=== PATIENT | female | born 1945 | race Hispanic/Latino ===

== ENCOUNTER → 2021-04-11 | Day surgery (SDC) | payer OTHER ==
[2021-04-08 10:48] LABS: BASOPHILS % 0.5 % (0.0-1.0); EOSINOPHILS # (AUTO) 0.1 (0.0-0.4); EOSINOPHILS % 2.2 % (0.0-6.0); HEMATOCRIT 41.9 % (34.2-44.1); LYMPHOCYTES # (AUTO) 2.3 (1.0-3.2); LYMPHOCYTES % 35.1 % (18.0-39.1); MEAN CORPUSCULAR HEMOGLOBIN 28.3 pg (28-32); MEAN CORPUSCULAR VOLUME 91.1 fL (81-99); MONOCYTES # (AUTO) 0.3 (0.2-0.8); MONOCYTES % 5.1 % (4.4-11.3); NEUTROPHILS # (AUTO) 3.7 (2.1-6.9); NEUTROPHILS % 56.9 % (38.7-80.0); PLATELET COUNT 202 x10e3/uL (140-360); RED CELL DISTRIBUTION WIDTH 12.6 % (11.7-14.4)
[2021-04-08 11:31] LABS: ANION GAP 16.4 mmol/L (8-16); CALCIUM 9.4 mg/dL (8.4-10.2); CREATININE, SERUM 0.97 mg/dL (0.57-1.11); POTASSIUM 4.4 mmol/L (3.5-5.1)
[~2021-04-11] MED LIST: ACETAMINOPHEN-1 EAC3 PO; ASPIRIN81 M1; BUPIVACAINE HCL 0.5% INJ 30 ML VIAL INJ ONE; CITRACAL + BON1 EACH; GLIPIZIDE ER5 MG PO; JANUVIA100 MG; LOSARTAN POTASS25 MG PO; LOVAZA1 GM; METFORMIN HCL1000 MG PO; MUPIROCIN 2% OINT 22 GM TUBE ONE; SIMVASTATIN20 MG; SODIUM CHLORIDE 0.9% 50ML 50 ML ONE; ZETIA10 MG PO
[2021-04-11 09:40] VITALS: BP 134/60
== END | disposition home or self-care (01) ==
LOC: OR 05:44
PROVIDERS: ATTEND Plastic Surgery
DX: G56.01 Carpal tunnel syndrome, right upper limb (principal); M65.831 Other synovitis and tenosynovitis, right forearm; G47.33 Obstructive sleep apnea (adult) (pediatric); I10 Essential (primary) hypertension; E11.9 Type 2 diabetes mellitus without complications; Z01.812 Encounter for preprocedural laboratory examination; Z01.818 Encounter for other preprocedural examination; Z20.822 Contact with and (suspected) exposure to COVID-19; Z79.84 Long term (current) use of oral hypoglycemic drugs; Z79.82 Long term (current) use of aspirin
CPT/HCPCS: 25115; 36415 ×2; 71046; 80048; 82948; 85025; J0690; U0002

== ENCOUNTER → 2021-05-02 | Day surgery (SDC) | payer OTHER ==
[~2021-05-02] MED LIST changes: -SODIUM CHLORIDE 0.9% 50ML 50 ML ONE
[2021-05-02 10:15] VITALS: BP 134/57
== END | disposition home or self-care (01) ==
LOC: OR 05:44
PROVIDERS: ATTEND Plastic Surgery
DX: G56.02 Carpal tunnel syndrome, left upper limb (principal); M65.832 Other synovitis and tenosynovitis, left forearm; G47.33 Obstructive sleep apnea (adult) (pediatric); R00.1 Bradycardia, unspecified; I10 Essential (primary) hypertension; E78.5 Hyperlipidemia, unspecified; E11.9 Type 2 diabetes mellitus without complications; Z01.812 Encounter for preprocedural laboratory examination; Z20.822 Contact with and (suspected) exposure to COVID-19; Z79.82 Long term (current) use of aspirin; Z79.84 Long term (current) use of oral hypoglycemic drugs
CPT/HCPCS: 25115; 36415; 82948; J0690; U0002

== ENCOUNTER 2025-02-27 01:06 | Inpatient (IN) | payer MEDICARE, OTHER ==
[2025-02-27] VITALS (37 sets, daily range): BP systolic 90–132; BP diastolic 46–89; PULSE 46–66; RESP 11–23; TEMP 97.7–98.6; O2SAT 96–100
[~2025-02-27] VITALS: Ht 157.5 cm; Wt 61.9 kg
[~2025-02-27 01:06] MED LIST changes: -BUPIVACAINE HCL 0.5% INJ 30 ML VIAL INJ ONE; -MUPIROCIN 2% OINT 22 GM TUBE ONE
[2025-02-27 01:42] LABS: BASOPHILS % 0.3 % (0.0-1.0); EOSINOPHILS % 0.8 % (0.0-6.0); LYMPHOCYTES % 24.0 % (18.0-39.1); MONOCYTES % 4.3 % (4.4-11.3); NEUTROPHILS % 69.7 % (38.7-80.0); RED CELL DISTRIBUTION WIDTH 12.4 % (11.7-14.4)
[2025-02-27] MEDS: ONDANSETRON HCL INJ 2MG/ML 2ML 2 MG/ML VIAL IV STA (01:44)
[2025-02-27] MEDS: SODIUM CHLORIDE 0.9% 1000ML 1,000 ML IV STA (01:44)
[2025-02-27 02:05] LABS: EST GLOMERULAR FILTRATION RATE 54.0 ML/MIN (>=60)
[2025-02-27] MEDS ORDERED: DEXTROSE 50% SYRINGE 50 ML IV ONE (02:06)
[2025-02-27] MEDS ORDERED: IOPAMIDOL 370 MG/ML 100 ML INFUS..BTL INJ ONE (02:10)
[2025-02-27] MEDS: DEXTROSE 50% SYRINGE 50 ML IV STA (02:12)
[2025-02-27] MEDS: CALCIUM GLUC 1 G/50 ML NACL 50 ML IV ONE (02:41)
[2025-02-27] MEDS: GLUCAGON FOR INJ 1 MG VIAL IV ONE (02:41)
[2025-02-27 03:15] LABS: LEUKOCYTE ESTERASE ,URINE 1+ (NEGATIVE); PROTEIN,URINE DIPSTICK NEGATIVE (NEGATIVE); URINE UROBILINOGEN 0.2 mg/dL (0.2 - 1)
[2025-02-27] MEDS ORDERED: ONDANSETRON HCL INJ 2MG/ML 2ML 2 MG/ML VIAL IV PRN (03:15)
[2025-02-27] MEDS ORDERED: Morphine 2mg Syringe 2 MG/ML SYR IV PRN (03:15)
[2025-02-27 03:25] LABS: EPITHELIAL CELLS,URINE FEW /LPF; WBC,URINE (MAN) 21-50 /HPF (0-5)
[2025-02-27 03:26] LABS: CALCIUM OXALATE CRYSTALS,UR MODERATE (FEW)
[2025-02-27] MEDS: SODIUM CHLORIDE 0.9% 1000ML 1,000 ML IV ONE (05:16)
[2025-02-27] MEDS: SODIUM CHLORIDE 0.9% 1000ML 1,000 ML IV SCH (06:09)
[2025-02-27] MEDS ORDERED: DEXTROSE 50% SYRINGE 50 ML IV PRN (06:15)
[2025-02-27] MEDS: INSULIN REGULAR, HUMAN 100 UNIT/1 ML SQ SCH (07:25)
[2025-02-27] MEDS ORDERED: ALBUTEROL/IPRATROPIUM 3 ML NEB NEB PRN (07:30)
[2025-02-27] MEDS ORDERED: MELATONIN 3 MG TAB PO PRN (07:30)
[2025-02-27] MEDS ORDERED: ACETAMINOPHEN 325 MG TAB PO PRN (07:30)
[2025-02-27] MEDS ORDERED: HYDRALAZINE HCL 20 MG/ML VIAL IV PRN (07:30)
[2025-02-27] MEDS ORDERED: DOCUSATE SODIUM 100 MG CAP PO PRN (07:30)
[2025-02-27 09:18] LABS: T3 UPTAKE 28.95 % (22.5-37.0)
[2025-02-27] MEDS: MUPIROCIN 2% OINT 22 GM TUBE TOP SCH (09:55)
[2025-02-27] MEDS: FAMOTIDINE 20 MG/2 ML VIAL IV SCH (09:55)
[2025-02-27] MEDS: LACTATED RINGER'S 1,000 ML INJ SCH (10:52)
[2025-02-27] MEDS ORDERED: MUPIROCIN 2% OINT 22 GM TUBE TOP SCH (21:00)
[2025-02-28] VITALS (20 sets, daily range): BP systolic 92–145; BP diastolic 47–70; PULSE 46–95; RESP 11–18; TEMP 98.1–98.5; O2SAT 96–100
[2025-02-28 06:35] LABS: BASOPHILS % 0.4 % (0.0-1.0); EOSINOPHILS % 1.7 % (0.0-6.0); LYMPHOCYTES % 33.9 % (18.0-39.1); MONOCYTES % 6.8 % (4.4-11.3); NEUTROPHILS % 57.0 % (38.7-80.0); RED CELL DISTRIBUTION WIDTH 12.9 % (11.7-14.4)
[2025-02-28 07:11] LABS: EST GLOMERULAR FILTRATION RATE 69.0 ML/MIN (>=60)
[2025-03-01 03:07] VITALS: BP 136/55; PULSE 77; RESP 18; TEMP 97.8; O2SAT 98
[2025-03-01] MEDS ORDERED: CEPHALEXIN500 MG PO (06:53)
[2025-03-01] MEDS ORDERED: HYDRALAZINE HCL25 MG PO (06:55)
[2025-03-01 07:37] VITALS: PULSE 46; RESP 14; O2SAT 95
[2025-03-01] MEDS: SODIUM CHLORIDE 0.9% 100 ML ONE (07:46)
[2025-03-01 08:00] VITALS: BP 136/55; PULSE 46; RESP 14; TEMP 97.8; O2SAT 95
[2025-03-01 08:07] VITALS: BP 137/60; PULSE 46; RESP 18; TEMP 97.2; O2SAT 98
[2025-03-01 12:49] VITALS: BP 123/71; PULSE 51; RESP 18; TEMP 98; O2SAT 99
== END 2025-03-01 13:46 | disposition home or self-care (01) | DRG 871 ==
LOC: ER 01:12 → ERHOLD 04:33 → ICU 07:57 → MED/SURG2 02-28 12:29
PROVIDERS: ADMIT Internal Medicine; ATTEND Internal Medicine
PROC: 06HY33Z Insertion of Infusion Device into Lower Vein, Percutaneous Approach (ICD-10-PCS; principal; 2025-02-27)
PROC: 3E03329 Introduction of Other Anti-infective into Peripheral Vein, Percutaneous Approach (ICD-10-PCS; 2025-02-27)
PROC: 3E043XZ Introduction of Vasopressor into Central Vein, Percutaneous Approach (ICD-10-PCS; 2025-02-27)
DX: A41.9 Sepsis, unspecified organism (principal); G93.41 Metabolic encephalopathy; R65.21 Severe sepsis with septic shock; N39.0 Urinary tract infection, site not specified; I45.2 Bifascicular block; N17.9 Acute kidney failure, unspecified; F03.911 Unspecified dementia, unspecified severity, with agitation; F05 Delirium due to known physiological condition; L76.32 Postprocedural hematoma of skin and subcutaneous tissue following other procedure; T38.3X5A Adverse effect of insulin and oral hypoglycemic [antidiabetic] drugs, initial encounter; E11.649 Type 2 diabetes mellitus with hypoglycemia without coma; Z79.84 Long term (current) use of oral hypoglycemic drugs; Y92.009 Unspecified place in unspecified non-institutional (private) residence as the place of occurrence of the external cause; E86.0 Dehydration; I95.9 Hypotension, unspecified; K52.9 Noninfective gastroenteritis and colitis, unspecified; K80.20 Calculus of gallbladder without cholecystitis without obstruction; R00.1 Bradycardia, unspecified; I10 Essential (primary) hypertension; E78.5 Hyperlipidemia, unspecified; I45.10 Unspecified right bundle-branch block; Z79.899 Other long term (current) drug therapy; Z79.82 Long term (current) use of aspirin; Y84.8 Other medical procedures as the cause of abnormal reaction of the patient, or of later complication, without mention of misadventure at the time of the procedure; Y92.230 Patient room in hospital as the place of occurrence of the external cause
CPT/HCPCS: 36415; 71045; 74177; 76705; 80053; 81001; 82550; 82948; 83690; 83880; 84436; 84443; 84479; 84484; 85014; 85018; 85025; 86140; 86850; 86900; 93005; 93306; 94799; 99284; J1308; J1610; J2405; J2543; J7030; J7050; J7799; Q9967

== ENCOUNTER 2025-03-06 06:56 | Inpatient (IN) | payer MEDICARE ==
[2025-03-06] VITALS (8 sets, daily range): BP systolic 121–129; BP diastolic 45–59; PULSE 51–84; RESP 17–26; TEMP 97.7–98.9; O2SAT 95–100
[~2025-03-06] VITALS: Ht 160 cm; Wt 68.0 kg
[~2025-03-06 06:56] MED LIST changes: +CEPHALEXIN500 MG PO; +HYDRALAZINE HCL25 MG PO
[2025-03-06] MEDS ORDERED: DEXTROSE 50% SYRINGE 50 ML IV ONE (07:04)
[2025-03-06] MEDS: DEXTROSE 5%/0.45% SOD CHL 1,000 ML IV ONE (07:24)
[2025-03-06 07:35] LABS: BASOPHILS % 0.1 % (0.0-1.0); EOSINOPHILS % 0.4 % (0.0-6.0); LYMPHOCYTES % 10.4 % (18.0-39.1); MONOCYTES % 2.4 % (4.4-11.3); NEUTROPHILS % 86.4 % (38.7-80.0); RED CELL DISTRIBUTION WIDTH 12.8 % (11.7-14.4)
[2025-03-06 07:51] LABS: INR 0.98
[2025-03-06 07:58] LABS: LEUKOCYTE ESTERASE ,URINE NEGATIVE (NEGATIVE); PROTEIN,URINE DIPSTICK NEGATIVE (NEGATIVE); URINE UROBILINOGEN 0.2 mg/dL (0.2 - 1)
[2025-03-06 07:59] LABS: EST GLOMERULAR FILTRATION RATE 69.0 ML/MIN (>=60)
[2025-03-06 08:01] LABS: EPITHELIAL CELLS,URINE RARE /LPF; WBC,URINE (MAN) 0-5 /HPF (0-5)
[2025-03-06] MEDS ORDERED: ONDANSETRON HCL INJ 2MG/ML 2ML 2 MG/ML VIAL IV PRN ×2 (08:45→14:15)
[2025-03-06] MEDS ORDERED: SIMETHICONE 80 MG CHEW PO PRN (14:15)
[2025-03-06] MEDS ORDERED: DIPHENHYDRAMINE HCL 25 MG CAP PO PRN (14:15)
[2025-03-06] MEDS ORDERED: DOCUSATE SODIUM 100 MG CAP PO PRN (14:15)
[2025-03-06] MEDS ORDERED: BENZONATATE 100 MG CAP PO PRN (14:15)
[2025-03-06] MEDS ORDERED: ALBUTEROL/IPRATROPIUM 3 ML NEB NEB PRN (14:15)
[2025-03-06] MEDS ORDERED: HYDRALAZINE HCL 20 MG/ML VIAL IV PRN (14:15)
[2025-03-06] MEDS ORDERED: POTASSIUM CHLORIDE 20 MEQ TAB CR PO PRN (14:15)
[2025-03-06] MEDS ORDERED: ACETAMINOPHEN 325 MG TAB PO PRN (14:15)
[2025-03-06] MEDS ORDERED: DEXTROSE 50% SYRINGE 50 ML IV PRN (14:15)
[2025-03-06] MEDS ORDERED: LIDOCAINE 4% PATCH TP PRN (14:15)
[2025-03-06] MEDS: ENOXAPARIN SOD INJ 40 MG/0.4 ML SYR SC SCH (17:07)
[2025-03-06] MEDS ORDERED: MELATONIN 5 MG TABLET PO PRN (21:00)
[2025-03-07] VITALS (8 sets, daily range): BP systolic 107–138; BP diastolic 53–67; PULSE 51–59; RESP 17–19; TEMP 97.8–98.7; O2SAT 63–100
[2025-03-07 05:59] LABS: BASOPHILS % 0.3 % (0.0-1.0); EOSINOPHILS % 2.6 % (0.0-6.0); LYMPHOCYTES % 38.3 % (18.0-39.1); MONOCYTES % 6.7 % (4.4-11.3); NEUTROPHILS % 51.9 % (38.7-80.0); RED CELL DISTRIBUTION WIDTH 13.1 % (11.7-14.4)
[2025-03-07 06:27] LABS: CHOL/HDL RATIO 2.6 (3.0-3.6); EST GLOMERULAR FILTRATION RATE 68.0 ML/MIN (>=60); LDL CHOLESTEROL 38.0 MG/DL (60-130)
[2025-03-07] MEDS: PANTOPRAZOLE SOD 40 MG TABEC PO SCH (08:33)
== END 2025-03-07 17:35 | disposition home or self-care (01) | DRG 637 ==
LOC: ER 07:02 → ERHOLD 08:35 → MED/SURG3 09:20
PROVIDERS: ADMIT Internal Medicine; ATTEND Internal Medicine
DX: E11.649 Type 2 diabetes mellitus with hypoglycemia without coma (principal); G93.41 Metabolic encephalopathy; T38.3X5A Adverse effect of insulin and oral hypoglycemic [antidiabetic] drugs, initial encounter; F03.90 Unspecified dementia, unspecified severity, without behavioral disturbance, psychotic disturbance, mood disturbance, and anxiety; I10 Essential (primary) hypertension; E78.5 Hyperlipidemia, unspecified; F32.A Depression, unspecified; R11.10 Vomiting, unspecified; Z79.84 Long term (current) use of oral hypoglycemic drugs; Z79.82 Long term (current) use of aspirin
CPT/HCPCS: 36415; 70450; 71045; 80053; 80061; 81001; 82550; 82948; 83036; 83735; 84443; 84484; 85025; 85610; 85730; 87086; 93005; 94760; 94799; 99284; J0696; J1650; J2470; J7799